=== PATIENT | female | born 1990 | race Caucasian/White ===

== ENCOUNTER 2018-03-15 20:13 | Emergency (ER) | payer OTHER ==
[~2018-03-15] VITALS: Ht 154.9 cm; Wt 62.6 kg
[~2018-03-15 20:13] MED LIST: ADVIL,NUPRIN,M200 MG PO; AMOXICILLIN500 MG PO; BUPRENORPHIN-N1 EACH SL; FLONASE16 G1 BOTH NARES; NAPROSYN500 MG PO; PEN-VEE K,VEET500 MG PO
[2018-03-15 21:13] LABS: APPEARANCE CLOUDY ((CLEAR)); BILIRUBIN NEGATIVE; BLOOD NEGATIVE; GLUCOSE (STRIP) NEGATIVE; KETONES NEGATIVE; LEUKOCYTES NEGATIVE; NITRITE NEGATIVE; PROTEIN (STRIP) NEGATIVE; SPECIFIC GRAVITY 1.018 (1.000-1.030); UROBILINOGEN 0.2 MG/DL (0.2-1.0)
[2018-03-15 21:25] LABS: COLOR YELLOW ((YELLOW))
[2018-03-15 22:26] LABS: HEMATOCRIT 33.8 % (36.0-46.0); HEMOGLOBIN 11.3 G/DL (11.9-15.5); MCH 28.2 PG (29.0-34.0); MCHC 33.4 G/DL (30.0-36.0); MCV 84.3 FL (83-99); PLATELET COUNT 252 K/uL (156-360); RBC DIS.WIDTH-CV 13.2 % (11.8-14.6); RBC DIS.WIDTH-SD 40.7 % (39-53); RED BLOOD COUNT 4.01 M/uL (3.80-5.20)
[2018-03-15 22:48] LABS: ALBUMIN 3.7 g/dL (3.2-4.8); CHLORIDE 108 mEq/L (99-109); POTASSIUM 3.9 mEq/L (3.7-5.4); SODIUM 137 mEq/L (136-147)
[2018-03-15 22:50] LABS: GLUCOSE 75 mg/dL (70-99)
[2018-03-15 22:52] LABS: TOTAL BILIRUBIN 0.1 mg/dL (0.0-1.0)
[2018-03-15 22:54] LABS: ALKALINE PHOSPHATASE 72 IU/L (3-129); CREATININE 0.8 mg/dL (0.6-1.3); GFR ESTIMATE (CALCULATED) > 59 mL/min/
[2018-03-15 22:55] LABS: UREA NITROGEN (BUN) 9 mg/dL (9-23)
[2018-03-15 22:56] LABS: AST (GOT) 18 IU/L (2-34)
[2018-03-15 22:57] LABS: ALT (GPT) 16 IU/L (3-49)
[2018-03-15 23:27] LABS: QUANTITATIVE HCG 37710.2 MIU/ML
[2018-03-16 00:16] LABS: BACTERIA NONE SEEN /HPF; EPITHELIAL CELLS RARE /HPF; MUCUS NONE SEEN /LPF; RED BLOOD CELLS 0-5 /HPF (0-5); UCUL ADDED? NO; WHITE BLOOD CELLS 0-5 /HPF (0-5)
[2018-03-16 00:43] VITALS: BP 102/56
== END 2018-03-16 00:44 | disposition home or self-care (01) ==
LOC: EME 20:13 → RME 20:13
DX: O9A.212 Injury, poisoning and certain other consequences of external causes complicating pregnancy, second trimester (principal); S30.1XXA Contusion of abdominal wall, initial encounter; W01.190A Fall on same level from slipping, tripping and stumbling with subsequent striking against furniture, initial encounter; O99.332 Smoking (tobacco) complicating pregnancy, second trimester; F17.200 Nicotine dependence, unspecified, uncomplicated; Z3A.15 15 weeks gestation of pregnancy
CPT/HCPCS: 76805; 80053; 81003; 84702; 85027; 99281; 99283